=== PATIENT | male | born 1980 | race American Indian/Alaskan Native ===

== ENCOUNTER 2021-11-08 10:08 | Day surgery (SDC) | payer OTHER ==
[2021-11-08] MEDS ORDERED: LACTATED RINGERS 1,000 ML ONE (10:35)
[2021-11-08] MEDS ORDERED: LACTATED RINGERS 1,000 ML IV SCH (11:00)
--- NOTE | 2021-11-08 11:04 | Anesthesia Day of Surgery ---
Anesthesia Day of Surgery - Day of Surgery Patient Examined: Yes Patient H&P Reviewed: Yes Patient is NPO: Yes
--- NOTE | 2021-11-08 11:04 | Anesthesia Consultation ---
Anesthesia Consult and Med Hx Date of service: 11/08/21 - Airway Anesthetic Teeth Evaluation: Good ROM Head & Neck: Adequate Mental/Hyoid Distance: Adequate Mallampati Class: Class II Intubation Access Assessment: Good - Pulmonary Exam CTA: Yes - Cardiac Exam Cardiac Exam: No Murmur - Pre-Operative Health Status ASA Pre-Surgery Classification: ASA2 Proposed Anesthetic Plan: General - Pulmonary Hx Smoking: Yes (2 CIGARS PER WEEK) Hx Sleep Apnea: No ([place] PRE SCREEN LOW RISK) - Cardiovascular System Hx Hypertension: No - Central Nervous System Hx Psychiatric Problems: No - Hematic Hx Anemia: No - Other Systems Hx Cancer: No
[2021-11-08] MEDS ORDERED: ceFAZolin/Water 2 GM/20 ML 2 GM/20 ML SYRINGE IV ONE (11:54)
[2021-11-08] MEDS ORDERED: ceFAZolin/STERILE WATER 2 GM/20 ML SYRINGE IV NR (12:00)
[2021-11-08] MEDS ORDERED: GABAPENTIN 300 MG CAP PO NR (12:00)
[2021-11-08] MEDS ORDERED: MIDAZOLAM 2 MG/2 ML INJ IV NR (12:00)
[2021-11-08] MEDS ORDERED: ONDANSETRON 4 MG/2 ML INJ ONE (12:17)
[2021-11-08] MEDS ORDERED: LIDOCAINE MPF (2%) 20 MG/1 ML VIAL 5 ML ONE (12:17)
[2021-11-08] MEDS ORDERED: propofoL 200 MG/20 ML VIAL IV ONE (12:18)
[2021-11-08] MEDS ORDERED: HYDROmorphone 1 MG/1 ML INJ ONE (12:18)
[2021-11-08] MEDS ORDERED: SODIUM CHLORIDE 0.9% IRR 1,500 ML BOTTLE IR ONE (13:30)
--- NOTE | 2021-11-08 13:47 | Discharge Summary ---
Short Stay Discharge Plan Activity: other (no straining ) Weight Bearing Status: Full Weight Bearing Diet: regular, low fat, low cholesterol Wound: open to air Special Instructions: other (ice in rr and x 24 hrs ) Follow up with: PRIMARY CARE, [Primary Care Provider] - 7 Days SINGH SABA MD [Staff Physician] - 48 Hours
--- NOTE | 2021-11-08 13:48 | Post Operative Note ---
Date of procedure: 11/08/21 Pre-op diagnosis: bilat hydroceles Post-op diagnosis: same Findings: same Procedure: bilat hydrocelectomies Anesthesia: GETA Surgeon: SINGH SABA Estimated blood loss: minimal Pathology: list (sac) Specimen disposition: to lab Condition: stable Disposition: PACU
[2021-11-08] MEDS ORDERED: KETOROLAC 30 MG/1 ML INJ ONE (13:54)
[2021-11-08] MEDS ORDERED: HYDROmorphone 0.5 MG/0.5 ML INJ ONE ×2 (14:04→14:10)
[2021-11-08] MEDS: HYDROmorphone 0.5 MG/0.5 ML INJ IV PRN ×2 (14:05→14:15)
[2021-11-08] MEDS ORDERED: oxyCODONE /ACETAMINOPHEN 5-325MG TAB PO PRN (14:06)
--- NOTE | 2021-11-08 14:19 | Post Anesthesia Evaluation ---
- Post Anesthesia Evaluation Patient Participated: Yes Airway Patent: Yes Stable Respiratory Function: Yes Nausea/Vomiting: No Temp > 96.8F: Yes Pain Manageable: Yes Adequeate Hydration: Yes Anesthesia Complications: No
[2021-11-08 16:19] VITALS: BP 121/82
--- NOTE | 2021-11-08 18:16 | Operative Report ---
DATE OF SURGERY: 11/08/2021 PREOPERATIVE DIAGNOSIS: Bilateral symptomatic hydroceles. POSTOPERATIVE DIAGNOSIS: Bilateral symptomatic hydroceles. PROCEDURE: Bilateral hydrocelectomy. SURGEON: Dr. Osei. ANESTHESIA: General. FINDINGS: This is a gentleman with bilateral hydroceles, right greater than left. He now presents for treatment. DESCRIPTION OF PROCEDURE: The patient was brought to the operating room and placed on the operating table. Following induction of anesthesia, placed in supine position, prepped and draped in usual sterile fashion. An oblique incision was made over the right hemiscrotum. It was carried through the skin and superficial fascial layers. The hydrocele was delivered. Approximately 50 mL of fluid, which was clear, was delivered. The large amount of excess tunica was excised and oversewn with 3-0 chromic. A 1/4-inch Aliza drain was placed in the right side. The patient tolerated the procedure well. The fascia was approximated with 3-0 chromic, skin with interrupted 3-0 chromic and the drain with a separate suture. In a symmetrical fashion, the left side was done, again about 50-70 mL of clear fluid; and at this point, the large amount of tunica was oversewn and we did place two sutures repair as well, so that the sac would not get around the testis. The patient tolerated the procedure well. A drain was placed in the dependent portion and secured. Fascia was closed with 3-0 chromic and skin with a chromic. The patient was brought to recovery in stable condition. TID: [id number] RECEIPT: BUZZ/JOSEY/BRENDA/OSIRIS
== END 2021-11-08 15:50 | disposition home or self-care (01) ==
LOC: OR 10:08
PROVIDERS: ATTEND Urology
DX: N43.2 Other hydrocele (principal); F17.210 Nicotine dependence, cigarettes, uncomplicated; Z79.899 Other long term (current) drug therapy; Z98.890 Other specified postprocedural states
CPT/HCPCS: 55041; 88302; J0690; J1170; J1885; J2250; J2405; J2704; J7120